=== PATIENT | female | born 1960 | race Caucasian/White ===

== ENCOUNTER 2016-11-27 05:19 | Day surgery (SDC) | payer MEDICARE, MEDICAID ==
[2016-11-24 16:11] LABS: HEMATOCRIT 35.1 % (36.0-48.0); HEMOGLOBIN 11.5 g/dL (12-16); MCH 31.2 pg (26.0-34.0); MCHC 32.8 g/dL (31.0-37.0); MCV 95.1 fL (80.0-100.0); MEAN PLATELET VOLUME 11.7 fL (7.4-10.4); RBC 3.69 10x6/uL (4.00-5.40); RDW 12.8 % (11.5-14.5); WBC 6.4 10x3/uL (4.8-10.8)
[~2016-11-27] VITALS: Ht 149.9 cm; Wt 58.2 kg
[2016-11-27] VITALS (11 sets, daily range): BP systolic 84–125; BP diastolic 46–65; Ht 149.9 cm; Wt 58.2 kg
[~2016-11-27 05:19] MED LIST: ABILIFY2 MG PO; CARDURA4 MG; COREG6.25 MG; CYMBALTA30 MG PO; CYMBALTA60 MG PO; ESTRACE1 MG PO; HYDROCODON-ACE1 EAC7 PO; KEPPRA250 MG; KLONOPIN1 MG PO; MEPERIDINE HCL50 MG PO; MUCINEX D1 TAB.SR . PO; NORCO 10/325 TA1 TA1 PO; OMEPRAZOLE40 MG PO; PRILOSEC20 MG PO; TOPAMAX50 MG PO; TRAZODONE HCL150 MG PO; ZYRTEC10 MG PO
--- NOTE | 2016-11-27 14:14 | NUR ---
RT ARM IMMOBILIZER APPLIED IN RR
--- NOTE | 2016-11-27 14:15 | NUR ---
VANCOMYCIN 1 GRAM IN 250CC OF NORMAL SALINE INFUSING ON ADMIT
--- NOTE | 2016-11-27 14:19 | NUR ---
CARE T PO INGRID PFEIFFER RN @[id number]
--- NOTE | 2016-11-27 14:29 | NUR ---
RECEIVED TO ROOM 2229 AT THIS TIME. RIGHT SHOULDER DRESSING C/D/I WITH IMMOBILIZER SLING IN PLACE. ICE PACK IN USE. VITAL SIGNS INITIATED PER PROTOCOL. IV TO LEFT HAND PATENT WITH NO S/S OF INFILTRATION PRESENT. ASSISTED PT TO RESTROOM WHERE SHE VOIDED 800ML OF PALE, YELLOW URINE WITHOUT DIFFICULTY. SISTER AT BEDSIDE. ORIENTED PT TO ROOM AND CALL LIGHT. PROVIDED PT WITH JELLO AND ICE WATER. DENIES FURTHER NEEDS AT THIS TIME. PAIN 5/10, WILL ADMINISTER PAIN MEDICATION PER ORDER.
--- NOTE | 2016-11-27 15:15 | NUR ---
PRN PERCOCET-10 ADMINISTERED AT THIS TIME FOR PAIN 5/10 TO RIGHT SHOULDER PER ORDER.
--- NOTE | 2016-11-27 19:57 | NUR ---
PATIENT REQUESTED PAIN MEDICATION WHEN IT IS DUE FOR 6/10 PAIN. PATIENT DENIES OTHER NEEDS AT THIS TIME. BED IN LOWEST POSITION AND CALL LIGHT WITHIN REACH. ENCOURAGED THE PATIENT TO CALL IF SHE HAS FURTHER NEEDS.
[2016-11-28 04:00] VITALS: BP 92/48
[2016-11-28 06:21] LABS: HEMATOCRIT 32.3 % (36.0-48.0); HEMOGLOBIN 10.3 g/dL (12-16)
--- NOTE | 2016-11-28 07:50 | NUR ---
PRN PERCOCET ADMINISTERED AT THIS TIME FOR PAIN 7/10 INCISIONALLY. FRESH ICE PACK APPLIED TO RIGHT SHOULDER. ASSESSMENT PERFORMED PER FLOWSHEET. CALL LIGHT IN REACH, WILL CONTINUE WITH PLAN OF CARE.
[2016-11-28 08:17] VITALS: BP 102/54
[2016-11-28] MEDS ORDERED: MEPERIDINE HCL50 MG PO (08:32)
--- NOTE | 2016-11-28 09:50 | NUR ---
PRESSURE DRESSING TO RIGHT SHOULDER REMOVED PER ORDER. IV TO LEFT HAND D/C WITH CATH TIP INTACT. WAITING ON SISTER TO BRING HER CLOTHES TO DISCHARGE.
--- NOTE | 2016-11-28 10:15 | NUR ---
D/C HOME WITH BOYFRIEND AND SISTER AT THIS TIME. DENIES QUESTIONS OR CONCERNS REGARDING DISCHARGE.
--- NOTE | 2016-11-30 14:38 | OP ---
PATIENT NAME: JACQUELINE HUERTA MEDICAL RECORD: [id number] :62 LOCATION:D.OPS ADMISSION DATE: SURGEON: PLACIDO ANDREWS MD DATE OF OPERATION: 11/27/2016 PREOPERATIVE DIAGNOSIS: Broken proximal humerus. POSTOPERATIVE DIAGNOSIS: Broken proximal humerus. PROCEDURE: Open reduction internal fixation of broken proximal humerus. SURGEON: Placido Andrews MD ANESTHESIA: General. INTRAOPERATIVE COMPLICATIONS: None. SUMMARY OF PATHOLOGIC FINDINGS: The patient had slipped into a valgus position consistent with the preoperative radiographs. OPERATIVE SUMMARY IN DETAIL: After obtaining the appropriate preoperative orthopedic surgery consent as well as anesthetic consultation, evaluation and clearance, the patient was brought to the operating room and placed on the operating table in supine position. After adequate general endotracheal anesthesia was administered, the patient was placed in the beach chair position, she was held firmly to the operating table using the vacuum pack suction system. All pressure points were well padded. Right upper extremity and shoulder were then prepped and draped in a routine sterile fashion. Deltopectoral incision was taken down past the cephalic vein. Clavipectoral fascia was incised. Direct manipulation for reduction was done under fluoroscopic guidance. The Calli 3-hole humeral head plate was put into place with all proximal locking screws and distal compression screws resulting in stabilization of the patient's humeral head fracture. Wound was copiously irrigated and closed with #1 Vicryl followed by skin damien. Sterile dressings were applied. The patient was awakened, taken to recovery room in stable condition. All final needle and sponge counts were correct. TRANSINT:[id number] Voice Confirmation ID: [id number] DOCUMENT ID: [id number] PLACIDO ANDREWS MD at 1438 CC: [id number] DICTATION DATE: 11/27/16 1350 [facility] STRAP: 11/28/16 0148 [facility] 11/28/16 [place] [id number]
== END 2016-11-28 10:15 | disposition home or self-care (01) ==
LOC: D.OPS 05:19 → D.PAN 11:15 → D.OPS 11:15 → D.MS 13:36 → D.OPS 11-28 10:15
PROVIDERS: Anesthesiology; Orthopaedic Surgery
DX: S42.201A Unspecified fracture of upper end of right humerus, initial encounter for closed fracture (principal)

== ENCOUNTER 2017-10-21 16:00 | Emergency (ER) | payer MEDICARE, MEDICAID ==
[2016-11-27 14:51] VITALS: BMI 25.9
== END 2017-10-21 18:10 | disposition home or self-care (01) ==
LOC: D.ER 16:00
DX: S62.522A Displaced fracture of distal phalanx of left thumb, initial encounter for closed fracture (principal); W19.XXXA Unspecified fall, initial encounter; Y93.89 Activity, other specified; Y92.019 Unspecified place in single-family (private) house as the place of occurrence of the external cause

== ENCOUNTER → 2018-03-01 12:58 | Outpatient (CLI) | payer MEDICARE, MEDICAID ==
[2016-11-27 14:51] VITALS: BMI 25.9
== END | disposition home or self-care (01) ==
LOC: D.MRI 12:58
DX: M54.12 Radiculopathy, cervical region (principal)